=== PATIENT | female | born 2000 | race Native Hawaiian/Other Pacific Islander ===

== ENCOUNTER 2021-11-16 13:11 | Emergency (ER) | payer OTHER ==
[~2021-11-16] VITALS: Ht 152.4 cm; Wt 52.2 kg
[2021-11-16 14:35] LABS: PLATELET COUNT 369 K/uL (152-353)
[2021-11-16 15:05] LABS: POTASSIUM 3.8 mmol/L (3.6-5.2)
[2021-11-16 15:44] VITALS: BP 124/88; TEMP 99
== END 2021-11-16 15:47 | disposition home or self-care (01) ==
LOC: ED 13:11
PROVIDERS: Family Medicine
DX: R10.31 Right lower quadrant pain (principal); Z20.2 Contact with and (suspected) exposure to infections with a predominantly sexual mode of transmission
CPT/HCPCS: 36415; 80053; 80307; 81002; 81025; 82150; 83690; 85027; 96372; 99283; J0696; J1885

== ENCOUNTER 2022-05-04 18:23 | Emergency (ER) | payer OTHER ==
[~2022-05-04] VITALS: Ht 152.4 cm; Wt 68.0 kg
[2022-05-04 18:30] VITALS: TEMP 97.7
[2022-05-04 19:55] VITALS: BP 128/82
== END 2022-05-04 19:55 | disposition home or self-care (01) ==
LOC: ED 18:23
DX: N93.8 Other specified abnormal uterine and vaginal bleeding (principal)
CPT/HCPCS: 81000; 81025; 99283

== ENCOUNTER 2022-05-28 08:13 | Emergency (ER) | payer OTHER ==
[~2022-05-28] VITALS: Ht 160 cm; Wt 108.9 kg
[2022-05-28 08:17] VITALS: BP 133/86; TEMP 97.9
== END 2022-05-28 08:56 | disposition home or self-care (01) ==
LOC: ED 08:13
DX: L03.211 Cellulitis of face (principal)
CPT/HCPCS: 99281

== ENCOUNTER 2022-09-01 15:10 | Emergency (ER) | payer OTHER ==
[~2022-09-01] VITALS: Ht 160 cm; Wt 72.6 kg
[2022-09-01 15:18] VITALS: BP 128/84; TEMP 99.2
[2022-09-01 15:43] LABS: PLATELET COUNT 277 K/uL (152-353)
[2022-09-01 16:06] LABS: POTASSIUM 4.3 mmol/L (3.6-5.2)
== END 2022-09-01 17:09 | disposition home or self-care (01) ==
LOC: ED 15:10
PROVIDERS: Family Medicine
DX: N93.8 Other specified abnormal uterine and vaginal bleeding (principal); B34.9 Viral infection, unspecified
CPT/HCPCS: 36415; 80053; 81000; 81025; 85027; 99283